=== PATIENT | female | born 2000 | race Hispanic/Latino ===

== ENCOUNTER 2021-08-10 15:21 | Day surgery (SDC) | payer OTHER ==
[2021-08-10 16:26] VITALS: BMI 32.4
[2021-08-10] MEDS ORDERED: hydrALAZINE 20 MG/ML VIAL SLOW IVP PRN (16:41)
[2021-08-10 17:37] LABS: Fetal Membranes Rupture No Membranes Rupture (No Rupture)
== END 2021-08-10 18:26 | disposition home or self-care (01) ==
LOC: CSHLD/OP 15:21
PROVIDERS: ATTEND Obstetrics & Gynecology
DX: O99.891 Other specified diseases and conditions complicating pregnancy (principal); N89.8 Other specified noninflammatory disorders of vagina; O24.410 Gestational diabetes mellitus in pregnancy, diet controlled; Z3A.36 36 weeks gestation of pregnancy; Z91.013 Allergy to seafood
CPT/HCPCS: 84112; 87480; 87510; 87660

== ENCOUNTER 2021-08-13 19:08 | Inpatient (IN) | payer OTHER ==
[2021-08-13] MEDS ORDERED: Acetaminophen 500 MG TAB PO PRN (19:29)
[2021-08-13] MEDS ORDERED: Promethazine HCl 25 MG/ML VIAL IM PRN (19:29)
[2021-08-13] MEDS ORDERED: Ondansetron PF 4 MG/2 ML Vial IVP PRN (19:29)
[2021-08-13] MEDS ORDERED: hydrALAZINE 20 MG/ML VIAL SLOW IVP PRN (19:29)
[2021-08-13 19:49] VITALS: BMI 31.9
[2021-08-13] MEDS ORDERED: Misoprostol 200 MCG TAB PR PRN (20:08)
[2021-08-13] MEDS ORDERED: Methylergonovine 0.2 MG/ML VIAL IM PRN (20:08)
[2021-08-13] MEDS ORDERED: Ibuprofen 800 MG TAB PO PRN (20:08)
[2021-08-13] MEDS ORDERED: Lidocaine 1% (PF) 30 ML VIAL SC PRN (20:08)
[2021-08-13] MEDS ORDERED: NS w/ Oxytocin 30 units 500 ML IV SCH (20:15)
[2021-08-13 21:02] LABS: Hemoglobin 11.5 g/dL (12.0-15.5); Mean Corpuscular HGB CONC 33.9 g/dL (32.0-36.0); Mean Corpuscular Hemoglobin 29.4 pg (27.0-33.0); Mean Corpuscular Volume 86.7 fl (81.6-98.3); Mean Platelet Volume 9.8 fl (7.4-10.4); Platelet Count 296 10x3/uL (150-450); RBC Distribution Width 13.9 % (11.5-14.5); Red Blood Cell (RBC) Count 3.91 10x6/uL (3.90-5.03)
[2021-08-13] MEDS: Misoprostol 100 MCG TAB VAG SCH (21:24)
[2021-08-13] MEDS: Lactated Ringer's 1,000 ML IV SCH (21:25)
[2021-08-13 21:27] LABS: SARS-CoV-2 NAA Rapid Test Not Detected (NotDetected)
[2021-08-13 21:34] LABS: Hep B Surf Ag Non-Reactive S/CO (NonReactive); Syphilis Antibody Nonreactive (Nonreactive); Syphilis Antibody Index 0.05 S/CO (<1.00 Non-Reactive)
[2021-08-13 21:40] LABS: HBSAg Index 0.18 S/CO (0-0.99)
[2021-08-14] MEDS: Misoprostol 100 MCG TAB VAG SCH ×2 (00:53→04:13)
[2021-08-14 01:38] LABS: Amphetamine Not Detected (NotDetected); Barbiturates Screen Not Detected (NotDetected); Benzodiazepine Screen Not Detected (NotDetected); Cocaine Metabolite Screen Not Detected (NotDetected); Methadone Not Detected (NotDetected); Methamphetamine Not Detected (NotDetected); Opiate Screen Not Detected (NotDetected); Oxycodone Screen Not Detected (NotDetected); Phencyclidine (PCP) Not Detected (NotDetected); THC/Cannabinoid Screen Not Detected (NotDetected); Tricyclic Screen Not Detected (NotDetected)
[2021-08-14] MEDS: Lactated Ringer's 1,000 ML IV SCH ×3 (04:10→14:30)
[2021-08-14] MEDS ORDERED: Butorphanol Tartrate 1 MG/ML VIAL SLOW IVP SCH (11:00)
[2021-08-14] MEDS ORDERED: Butorphanol Tartrate 1 MG/ML VIAL ONE (11:02)
[2021-08-14] MEDS ORDERED: Fentanyl 2 mcg/Bup 0.1% Cadd 100 ML ONE (13:24)
[2021-08-14] MEDS ORDERED: ePHEDrine Sulfate 50 MG/10 ML VIAL SLOW IVP PRN (14:39)
[2021-08-14] MEDS ORDERED: Lactated Ringer's 500 ML IV PRN (14:39)
[2021-08-14] MEDS ORDERED: Acetaminophen 325 MG TAB PO PRN (14:39)
[2021-08-14] MEDS ORDERED: Ondansetron PF 4 MG/2 ML Vial IVP PRN (14:39)
[2021-08-14] MEDS ORDERED: Hydrocerin (Eucerin) Cream 120 gm Jar TOP PRN (14:39)
[2021-08-14] MEDS ORDERED: Promethazine HCl 25 MG/ML VIAL IM PRN (14:39)
[2021-08-14] MEDS ORDERED: Naloxone HCl 0.4 mg/ml Vial IVP PRN ×2 (14:39)
[2021-08-14] MEDS ORDERED: diphenhydrAMINE 50 MG/ML VIAL IVP PRN (14:39)
[2021-08-14] MEDS ORDERED: Communication Order-Pharmacy FS SCH (14:45)
[2021-08-14] MEDS ORDERED: Fentanyl 2 mcg/Bupivacaine 0.1% Cassette 100 ML EPIDURAL SCH (15:00)
[2021-08-14] MEDS ORDERED: HYDROcodone/Acetaminophen 5/325 mg Tablet PO PRN (16:16)
[2021-08-14 16:17] LABS: Critical Notified Whom: MD; RapidComm Collect By CBN; pH (Cord, venous) 7.219 (7.250-7.350)
[2021-08-14] MEDS: Ibuprofen 800 MG TAB PO SCH (17:47)
[2021-08-14] MEDS: Acetaminophen 325 MG TAB PO SCH (21:03)
[2021-08-15] MEDS: Acetaminophen 325 MG TAB PO SCH ×7 (01:08→22:19)
[2021-08-15] MEDS: Ibuprofen 800 MG TAB PO SCH ×3 (01:09→17:29)
[2021-08-15] MEDS: Misoprostol 100 MCG TAB VAG SCH (08:38)
[2021-08-15] MEDS ORDERED: Benzocaine-Menthol 82.5 ML CAN TOP PRN (11:36)
[2021-08-15] MEDS ORDERED: Lanolin Ointment 7 GM TUBE TOP PRN (21:29)
[2021-08-16 08:31] VITALS: BP 125/69; TEMP 98.2
[2021-08-16] MEDS: Acetaminophen 325 MG TAB PO SCH ×3 (08:41→12:27)
[2021-08-16] MEDS: Ibuprofen 800 MG TAB PO SCH ×2 (08:41→11:43)
[2021-08-16] MEDS ORDERED: Prenatal Vitamin 1 TAB PO SCH (09:00)
== END 2021-08-16 13:00 | disposition home or self-care (01) | DRG 806 ==
LOC: CSHLD 19:08 → CSHPP 08-14 18:50
PROVIDERS: ADMIT Obstetrics & Gynecology; ATTEND Obstetrics & Gynecology
PROC: 10E0XZZ Delivery of Products of Conception, External Approach (ICD-10-PCS; principal; 2021-08-14)
PROC: 0KQM0ZZ Repair Perineum Muscle, Open Approach (ICD-10-PCS; 2021-08-14)
DX: O41.03X0 Oligohydramnios, third trimester, not applicable or unspecified (principal); N13.30 Unspecified hydronephrosis; Z37.0 Single live birth; Z20.822 Contact with and (suspected) exposure to COVID-19; O24.420 Gestational diabetes mellitus in childbirth, diet controlled; O99.892 Other specified diseases and conditions complicating childbirth; Z3A.37 37 weeks gestation of pregnancy; O70.1 Second degree perineal laceration during delivery; O71.82 Other specified trauma to perineum and vulva
CPT/HCPCS: 36416; 51702; 80306; 82805; 85027; 86780; 86850; 86900; 86901; 87340; J0595; J2590; J7120; U0002